=== PATIENT | male | born 1950 | race Caucasian/White ===

== ENCOUNTER → 2016-06-14 | Outpatient (CLI) | payer MEDICARE, OTHER ==
[~2016-06-14] MED LIST: ASPIR 8181 MG PO; DIGITEK125 MCG PO; FLOMAX 0.4 MG0.4 MG PO; HUMALOG100 UNIT/1 SC; LISINOPRIL2.5 MG PO; LORTAB 5-325 M1 EACH PO; NEURONTIN 100100 MG PO; PAROXETINE HCL40 MG PO; PRAVASTATIN SOD40 MG PO; TOPROL XL50 MG PO; VITAMIN B-1000 MCG/M IM
== END ==
LOC: HEART 5 08:30
DX: I20.8 Other forms of angina pectoris (principal); R06.02 Shortness of breath; I34.0 Nonrheumatic mitral (valve) insufficiency
CPT/HCPCS: 78452; 93306; A9502; J2785

== ENCOUNTER → 2016-07-08 | Outpatient (CLI) | payer MEDICARE, OTHER ==
[2016-07-08 13:05] LABS: HEMOGLOBIN 14.8 gm/dl (14.0-17.5); RED BLOOD COUNT 4.72 M/UL (4.20-5.50); WHITE BLOOD COUNT 8.7 K/UL (4.5-11.0)
[2016-07-08 13:21] LABS: BUN/CREATININE RATIO 18 (0-10)
== END ==
LOC: LAB 11:31
PROVIDERS: Internal Medicine
DX: Z01.810 Encounter for preprocedural cardiovascular examination (principal); R94.31 Abnormal electrocardiogram [ECG] [EKG]
CPT/HCPCS: 36415; 80048; 85025; 85610; 85730; 93005

== ENCOUNTER → 2016-07-11 | Outpatient (CLI) | payer MEDICARE, OTHER ==
[~2016-07-11] VITALS: Ht 182.9 cm; Wt 97.5 kg
== END | disposition home or self-care (01) ==
LOC: CATH 06:30
DX: I25.118 Atherosclerotic heart disease of native coronary artery with other forms of angina pectoris (principal); R94.39 Abnormal result of other cardiovascular function study; I11.0 Hypertensive heart disease with heart failure; I50.22 Chronic systolic (congestive) heart failure; E11.9 Type 2 diabetes mellitus without complications; I67.9 Cerebrovascular disease, unspecified; E78.5 Hyperlipidemia, unspecified; F17.200 Nicotine dependence, unspecified, uncomplicated; E66.9 Obesity, unspecified; Z68.29 Body mass index [BMI] 29.0-29.9, adult; R06.02 Shortness of breath; I08.1 Rheumatic disorders of both mitral and tricuspid valves; Z79.4 Long term (current) use of insulin; Z79.82 Long term (current) use of aspirin; Z79.891 Long term (current) use of opiate analgesic; Z79.899 Other long term (current) drug therapy; I27.2 Other secondary pulmonary hypertension; Z86.73 Personal history of transient ischemic attack (TIA), and cerebral infarction without residual deficits
CPT/HCPCS: 82962; C1769; C1894; J1644; J2250; J3010; J7030; Q9963

== ENCOUNTER → 2016-09-15 | Outpatient (CLI) | payer MEDICARE | LOC: HEART 5 11:08 | DX: I34.0 Nonrheumatic mitral (valve) insufficiency (principal); R94.39 Abnormal result of other cardiovascular function study; I05.9 Rheumatic mitral valve disease, unspecified; I27.2 Other secondary pulmonary hypertension | CPT/HCPCS: 93306 ==

== ENCOUNTER 2020-07-04 14:28 | Inpatient (IN) | payer MEDICARE ==
[~2020-07-04] VITALS: Ht 182.9 cm; Wt 103.4 kg
[~2020-07-04 14:28] MED LIST changes: +AVODART 0.5 MG0.5 MG PO; +BASAGLAR K100 UNIT/1 SC; +DESYREL 50 MG T50 MG PO; +DOXYCYCLINE HY100 M2 PO; +ELIQUIS 5 MG TAB5 MG PO; +FUROSEMIDE40 MG PO; +HUMALOG 10100 UNITS/ SC; -HUMALOG100 UNIT/1 SC; +HUMALOG100 UNIT/3 SQ; +IPRAT-ALBUT 0.5-3 ML NEB; +K-DUR TAB 10 M10 MEQ PO; +KLONOPIN0.5 MG PO; +LASIX40 MG PO; +LIPITOR40 MG PO; -LISINOPRIL2.5 MG PO; +LOPRESSOR 25 MG25 MG PO; -LORTAB 5-325 M1 EACH PO; -NEURONTIN 100100 MG PO; +NEURONTIN800 MG PO; +NORCO 7.5-3251 EACH PO; +OMEPRAZOLE20 MG PO; -TOPROL XL50 MG PO; +TRELEGY ELLIPT1 EACH INH; +VENTOLIN HFA 66.7 GM INH; +ZESTRIL/PRINIVI10 MG PO
[2020-07-04 16:07] LABS: HEMOGLOBIN 11.9 gm/dl (14.0-17.5); RED BLOOD COUNT 3.76 M/UL (4.20-5.50); WHITE BLOOD COUNT 9.7 K/UL (4.5-11.0)
[2020-07-04 16:31] LABS: BUN/CREATININE RATIO 20 (0-10)
[2020-07-05 04:00] LABS: HEMOGLOBIN 11.9 gm/dl (14.0-17.5); RED BLOOD COUNT 3.81 M/UL (4.20-5.50); WHITE BLOOD COUNT 9.1 K/UL (4.5-11.0)
[2020-07-05 04:30] LABS: BUN/CREATININE RATIO 18 (0-10)
[2020-07-05] MEDS ORDERED: DILTIAZEM 24HR180 M1 PO (04:37)
[2020-07-05] MEDS ORDERED: GABAPENTIN800 MG PO (04:38)
[2020-07-05] MEDS ORDERED: METOPROLOL TART50 MG PO (04:39)
[2020-07-05] MEDS ORDERED: ISOSORBIDE MONO30 MG PO (04:41)
[2020-07-05] MEDS ORDERED: FLOMAX0.4 MG PO (04:42)
[2020-07-05] MEDS ORDERED: FUROSEMIDE20 MG PO (04:44)
[2020-07-05] MEDS ORDERED: HUMALOG MI100 UNIT/3 SC (06:54)
[2020-07-05] MEDS ORDERED: ENTRESTO 49 MG1 EACH PO (21:48)
[2020-07-06 04:26] LABS: HEMOGLOBIN 12.8 gm/dl (14.0-17.5); RED BLOOD COUNT 4.07 M/UL (4.20-5.50); WHITE BLOOD COUNT 7.7 K/UL (4.5-11.0)
[2020-07-06 04:41] LABS: BUN/CREATININE RATIO 18 (0-10)
--- NOTE | 2020-07-08 04:09 | NUR ---
'S PHONE NUMBER: [phone] OTHER FAMILY: [phone]
[2020-07-09 02:27] LABS: HEMOGLOBIN 13.2 gm/dl (14.0-17.5); RED BLOOD COUNT 4.22 M/UL (4.20-5.50); WHITE BLOOD COUNT 7.9 K/UL (4.5-11.0)
[2020-07-09 02:49] LABS: BUN/CREATININE RATIO 18 (0-10)
[2020-07-10] MEDS ORDERED: LASIX40 MG PO (14:08)
== END 2020-07-10 15:43 | disposition home or self-care (01) | DRG 177 ==
LOC: ER1 14:28 → M/S 17:21 → PROG CARE 17:21 → CDU 17:21 → M/S 17:21 → PROG CARE 07-05 20:28
PROVIDERS: Emergency Medicine; Internal Medicine; Physician Assistant Medical; ADMIT Internal Medicine
DX: J69.0 Pneumonitis due to inhalation of food and vomit (principal); J96.21 Acute and chronic respiratory failure with hypoxia; I50.23 Acute on chronic systolic (congestive) heart failure; I69.351 Hemiplegia and hemiparesis following cerebral infarction affecting right dominant side; I48.19 Other persistent atrial fibrillation; I11.0 Hypertensive heart disease with heart failure; Z20.822 Contact with and (suspected) exposure to COVID-19; I25.10 Atherosclerotic heart disease of native coronary artery without angina pectoris; I25.5 Ischemic cardiomyopathy; E11.9 Type 2 diabetes mellitus without complications; E78.5 Hyperlipidemia, unspecified; K21.9 Gastro-esophageal reflux disease without esophagitis; D64.9 Anemia, unspecified; J44.9 Chronic obstructive pulmonary disease, unspecified; G89.4 Chronic pain syndrome; F41.9 Anxiety disorder, unspecified; N40.0 Benign prostatic hyperplasia without lower urinary tract symptoms; M81.0 Age-related osteoporosis without current pathological fracture; E66.9 Obesity, unspecified; Z95.1 Presence of aortocoronary bypass graft; Z95.810 Presence of automatic (implantable) cardiac defibrillator; Z87.891 Personal history of nicotine dependence; Z79.01 Long term (current) use of anticoagulants; Z79.82 Long term (current) use of aspirin; Z88.5 Allergy status to narcotic agent; Z68.31 Body mass index [BMI] 31.0-31.9, adult
CPT/HCPCS: ECHO; 36415; 36600; 71045; 74018; 74230; 80048; 80053; 81001; 82550; 82553; 82803; 82962; 83036; 83735; 83874; 83880; 84132; 84484; 85025; 85027; 92526; 92610; 92611-GN; 93005; 93306; 94760; 96372; 96374; 96375; 97110-GP-CQ; 97116-GP-CQ; 97161; 97530-GP-CQ; 99285; G0378; J1160; J1940; Q9967; U0002